=== PATIENT | female | born 1960 | race Asian ===

== ENCOUNTER 2017-10-17 13:48 | Emergency (ER) | payer MEDICAID ==
[~2017-10-17] VITALS: Ht 157.5 cm; Wt 59.9 kg
[2017-10-17] MEDS ORDERED: IV NS 0.9% 1,000 ML BAG IV ONE (14:00)
[2017-10-17] MEDS ORDERED: ACETAMINOPHEN ES 500 MG TABLET PO ONE (14:00)
--- NOTE | 2017-10-17 14:00 | NUR ---
ABDOMINAL PAIN, FEVER, CHILLS x 1 DAY, NAD NOTED, VSS, RESP EVEN AND UNLABORED, WAITING FOR MD ROBINS.
[2017-10-17] MEDS ORDERED: ACETAMINOPHEN ES 500 MG TABLET ONE (14:15)
[2017-10-17] MEDS ORDERED: ONDANSETRON HCL/PF 4 MG/2 ML VIAL ONE (14:16)
[2017-10-17 14:19] LABS: EOSINOPHILS % (AUTO) 0.1 % (0.0-6.0); HEMATOCRIT 41 % (33-45); HEMOGLOBIN 13.9 g/dL (11.5-14.8); LYMPHOCYTES # (AUTO) 0.3 /CMM (0.8-4.8); LYMPHOCYTES % (AUTO) 3.4 % (20.0-44.0); MEAN CORPUSCULAR HGB CONC 34 g/dl (31.0-36.0); MEAN CORPUSCULAR VOLUME 86 fL (82-100); MONOCYTES % (AUTO) 0.3 % (2.0-12.0); NEUTROPHILS # (AUTO) 8.3 /CMM (1.8-8.9); NEUTROPHILS % (AUTO) 96.2 % (43.0-81.0); PLATELET COUNT (AUTO) 251 /CMM (150-450); RDW COEFFICIENT OF VARIATION 13.2 (11.5-15.0); RED BLOOD CELL COUNT(AUTO) 4.71 MIL/uL (4.0-5.2); WHITE BLOOD COUNT (AUTO) 8.6 K/uL (4.3-11.0)
[2017-10-17] MEDS ORDERED: ONDANSETRON HCL/PF 4 MG/2 ML VIAL IV ONE (14:30)
--- NOTE | 2017-10-17 14:34 | NUR ---
meds given per md pt rec'd to er c/o abd pain iv started rt ac 20g labs sent
[2017-10-17 14:37] LABS: INR 0.94 (0.87-1.13)
[2017-10-17] MEDS ORDERED: LOSA25TA13 PO (14:37)
[2017-10-17] MEDS ORDERED: HYDR12.55 PO (14:37)
[2017-10-17 14:44] LABS: CALCIUM, SERUM 9.2 mg/dL (8.5-10.1); CREATININE 0.9 mg/dL (0.6-1.3); POTASSIUM 3.6 mmol/L (3.5-5.1)
--- NOTE | 2017-10-17 14:48 | NUR ---
urine sent to lab
[2017-10-17 14:51] LABS: ALBUMIN 4.1 g/dL (3.4-5.0); BILIRUBIN,DIRECT 0.1 mg/dL (0.0-0.2); BILIRUBIN,TOTAL 0.5 mg/dL (0.2-1.0); TOTAL PROTEIN, SERUM 8.3 g/dL (6.4-8.2)
[2017-10-17 14:52] LABS: APPEARANCE,URINE Clear (CLEAR); BILIRUBIN,URINE Negative (NEGATIVE); BLOOD, URINE Negative Ery/uL (NEGATIVE); COLOR,URINE Yellow (YELLOW); KETONES,URINE Negative (NEGATIVE); LEUKOCYTE ESTERASE ,URINE Negative (NEGATIVE); NITRITE, URINE Negative (NEGATIVE); PH,URINE 7.5 (5.0-8.0); PROTEIN,URINE Negative (NEGATIVE); UGLUCOSE Negative (NEGATIVE); UROBILINOGEN,URINE 0.2 EU/dL (0.2)
[2017-10-17 16:00] VITALS: BP 145/80
--- NOTE | 2017-10-17 16:01 | NUR ---
Patient discharged to home in stable condition. Written and verbal after care instructions given. Patient verbalizes understanding of instruction.IV removed. Catheter intact and site benign. Pressure and 4x4 applied to site. No bleeding noted.
== END 2017-10-17 16:03 | disposition home or self-care (01) ==
LOC: ER 13:50
DX: R10.30 Lower abdominal pain, unspecified (principal); R50.9 Fever, unspecified
CPT/HCPCS: 36415; 71045; 80048; 80076; 81001; 83690; 85025; 85730; 87077; 87086; 96361; 96374; 99285; A4606; J2405; J7030; Z7610; 81000-TC

== ENCOUNTER 2017-10-18 08:28 | Inpatient (IN) | payer MEDICAID ==
[~2017-10-18] VITALS: Ht 157.5 cm; Wt 59.9 kg
[~2017-10-18 08:28] MED LIST: HYDR12.55 PO; LOSA25TA13 PO
--- NOTE | 2017-10-18 08:55 | NUR ---
RECIEVED PATIENT TO ED BED 13, PT IS COMPLAINING OF SUPRAPUBIC PAIN X YESTERDAY, PT WAS SEEN HERE YESTERDAY FOR SAME. PT STS SHE GETS TEMPORARY RELIEF FROM TYLENOL BUT PAIN WOULD COME BACK. NAD VSS RR EVEN AND UNLABORED. WILL CONTINUE TO MONITOR
[2017-10-18] MEDS ORDERED: MORPHINE SULFATE INJ 4 MG/ML DISP.SYRIN ONE (09:00)
[2017-10-18] MEDS ORDERED: ONDANSETRON HCL/PF 4 MG/2 ML VIAL ONE (09:00)
[2017-10-18] MEDS ORDERED: IV NS 0.9% 1,000 ML BAG IV ONE (09:00)
[2017-10-18] MEDS ORDERED: ONDANSETRON HCL/PF - ER 4 MG/2 ML VIAL IV ONE (09:00)
[2017-10-18] MEDS ORDERED: MORPHINE SULFATE INJ 2 MG/ML DISP.SYRIN IV ONE (09:00)
[2017-10-18 09:06] LABS: BASOPHILS % (AUTO) 0.1 % (0.0-2.0); EOSINOPHILS % (AUTO) 0.9 % (0.0-6.0); HEMATOCRIT 42 % (33-45); HEMOGLOBIN 14.3 g/dL (11.5-14.8); LYMPHOCYTES # (AUTO) 0.2 /CMM (0.8-4.8); LYMPHOCYTES % (AUTO) 3.3 % (20.0-44.0); MEAN CORPUSCULAR HGB CONC 34 g/dl (31.0-36.0); MEAN CORPUSCULAR VOLUME 86 fL (82-100); MONOCYTES # (AUTO) 0.2 /CMM (0.1-1.30); MONOCYTES % (AUTO) 2.8 % (2.0-12.0); NEUTROPHILS % (AUTO) 92.9 % (43.0-81.0); PLATELET COUNT (AUTO) 242 /CMM (150-450); RDW COEFFICIENT OF VARIATION 13.1 (11.5-15.0); RED BLOOD CELL COUNT(AUTO) 4.86 MIL/uL (4.0-5.2); WHITE BLOOD COUNT (AUTO) 6.5 K/uL (4.3-11.0)
[2017-10-18 09:14] LABS: CALCIUM, SERUM 9.1 mg/dL (8.5-10.1); POTASSIUM 3.5 mmol/L (3.5-5.1)
[2017-10-18 09:20] LABS: ALBUMIN 3.7 g/dL (3.4-5.0); BILIRUBIN,DIRECT 0.8 mg/dL (0.0-0.2); BILIRUBIN,TOTAL 2.1 mg/dL (0.2-1.0); TOTAL PROTEIN, SERUM 8.1 g/dL (6.4-8.2)
--- NOTE | 2017-10-18 09:51 | NUR ---
DR GANT PAGED [phone]
[2017-10-18] MEDS ORDERED: PIPERACILLIN /TAZOBACTAM 3.375 G in IV D5W 50 ML IV ONE (10:00)
--- NOTE | 2017-10-18 10:11 | NUR ---
Izabella Machado for admission
--- NOTE | 2017-10-18 10:32 | NUR ---
REPORT GIVEN TO AUTUMN LIMON FOR CONT OF CARE
--- NOTE | 2017-10-18 10:43 | NUR ---
PT TRANSFERRED TO FLOOR IN STABLE CONDITION.
--- NOTE | 2017-10-18 10:45 | NUR ---
RN NOTES PT BROUGHT TO FLOOR IN STABLE CONDITION, ALERT AND ORIENTED X4. PT ON RA, RESPIRATIONS ARE EVEN AND UNLABORED. IV ON LAC INTACT AND SL. NO SIGNS OF DISTRESS NOTED. SAFETY MEASURES ARE IN PLACE, CALL LIGHT IS IN REACH. WILL CONTINUE TO MONITOR.
[2017-10-18] MEDS ORDERED: IV NS 0.9% 1,000 ML IV PRN (10:47)
[2017-10-18] MEDS ORDERED: Z GUARD REMEDY 2 OZ OINT TP PRN (11:00)
[2017-10-18] MEDS ORDERED: ZOLPIDEM TARTRATE 5 MG TABLET PO PRN ×2 (11:00→15:00)
[2017-10-18] MEDS ORDERED: ONDANSETRON HCL/PF 4 MG/2 ML VIAL IVP PRN (11:00)
[2017-10-18] MEDS ORDERED: MORPHINE SULFATE INJ 2 MG/ML DISP.SYRIN IV PRN (11:00)
[2017-10-18] MEDS ORDERED: MAGNESIUM HYDROXIDE 30 ML UDC PO PRN (11:00)
[2017-10-18] MEDS ORDERED: MAG HYDROX/AL HYDROX/SIMETH 30 ML UDC PO PRN (11:00)
[2017-10-18] MEDS ORDERED: MIDAZOLAM HCL 2 MG/2ML VIAL ONE (11:18)
[2017-10-18] MEDS ORDERED: FENTANYL PF 100MCG/2ML AMPUL ONE ×2 (11:18→13:13)
[2017-10-18] MEDS ORDERED: ROCURONIUM BROMIDE 50 MG/5 ML ONE (11:19)
[2017-10-18] MEDS ORDERED: FENTANYL PF 100MCG/2ML AMPUL IV PRN (11:30)
[2017-10-18] MEDS ORDERED: BUPIVACAINE 0.25% 75 MG/30 ML VIAL ONE (11:48)
[2017-10-18 14:00] VITALS: BP 114/73
[2017-10-18] MEDS ORDERED: oxyCODONE/APAP (5/325 MG) 1 UDTAB TABLET PO PRN ×2 (15:00)
[2017-10-18] MEDS ORDERED: ONDANSETRON HCL/PF 4 MG/2 ML VIAL IV PRN (15:00)
[2017-10-18 16:00] VITALS: BP 114/70
[2017-10-18] MEDS: IV D5/0.45 NACL W/20 MEQ KCL 1L IV PRN ×2 (16:31)
[2017-10-18] MEDS: LOSARTAN POTASSIUM 25 MG TABLET PO SCH (17:30)
[2017-10-18] MEDS: ZOSYN IVPB 3.375 G in IV D5W 50ml IV SCH (17:30)
[2017-10-18 17:46] LABS: HEMATOCRIT 37 % (33-45); HEMOGLOBIN 12.8 g/dL (11.5-14.8); LYMPHOCYTES # (AUTO) 0.2 /CMM (0.8-4.8); LYMPHOCYTES % (AUTO) 2.5 % (20.0-44.0); MEAN CORPUSCULAR HGB CONC 34 g/dl (31.0-36.0); MEAN CORPUSCULAR VOLUME 86 fL (82-100); MONOCYTES # (AUTO) 0.2 /CMM (0.1-1.30); MONOCYTES % (AUTO) 2.2 % (2.0-12.0); NEUTROPHILS # (AUTO) 7.3 /CMM (1.8-8.9); NEUTROPHILS % (AUTO) 95.3 % (43.0-81.0); PLATELET COUNT (AUTO) 169 /CMM (150-450); RDW COEFFICIENT OF VARIATION 13.8 (11.5-15.0); RED BLOOD CELL COUNT(AUTO) 4.35 MIL/uL (4.0-5.2); WHITE BLOOD COUNT (AUTO) 7.6 K/uL (4.3-11.0)
--- NOTE | 2017-10-18 18:25 | NUR ---
RN NOTES PT IS SITTING UP IN BED, AWAKE AND ALERT WITH AT BEDSIDE. PT ON RA, RESPIRATIONS ARE EVEN AND UNLABORED. IV ON LAC INTACT AND RUNNING D51/2 NS +20MEQ KCL @ 75ML/HR. ALL MEDS WERE GIVEN ORDERED AND PT NEEDS MET. INCISION SITES ARE CLEAN AND DRY POST SURGERY. NO SIGNS OF DISTRESS NOTED. SAFETY MEASURES ARE IN PLACE, CALL LIGHT IS IN REACH. WILL ENDORSE TO DELIVERY ANALYST RN FOR CONTINUITY OF CARE.
--- NOTE | 2017-10-18 19:30 | NUR ---
MS RN NOTE: PATIENT RESTING IN BED, NO ACUTE DISTRESS NOTED. BREATHING EVEN AND UNLABORED, NO SOB NOTED. IV TO LAC IN PLACE, INFUSING D5 1/2NS WITH 20 MEQ OF KCL AT 75ML/HR. 3 INCISION SITE TO ABDOMEN WITH DRESSING IN PLACE, NO BLEEDING OR DRAINAGE NOTED. BED LOCKED AND IN LOWEST POSITION, CALL LIGHT IN REACH. WILL CONTINUE TO MONITOR.
[2017-10-18 20:00] VITALS: BP 126/71
[2017-10-18 20:38] LABS: BAND % (MANUAL) 11 % (0.0-5.0); LYMPHOCYTES % (MANUAL) 1 % (16-48); MONOCYTES % (MANUAL) 4 % (0-11.0); NEUTROPHILS % (MANUAL) 82 (42-76); REACTIVE LYMPHOCYTES 2 % (0-0)
--- NOTE | 2017-10-18 21:15 | NUR ---
MS RN NOTE: REPORT GIVEN TO ASHLY DALAL. PATIENT RESTING IN BED, NO ACUTE DISTRESS NOTED. TO CONTINUE WITH PLAN OF CARE.
--- NOTE | 2017-10-18 21:26 | NUR ---
MS RN NOTES: RECEIVED PT FROM MELISSA LIMON. PT IN STABLE CONDITION. WILL CONTINUE TO MONITOR PT.
[2017-10-18] MEDS: ACETAMINOPHEN 325 MG TABLET PO PRN (21:27)
--- NOTE | 2017-10-18 21:27 | NUR ---
MS RN NOTES: PT WAS ADMINISTERED TYLENOL 650 MG PO FOR MILD PAIN IN HER ABDOMEN AREA.
[2017-10-19] MEDS: ZOSYN IVPB 3.375 G in IV D5W 50ml IV SCH ×3 (01:09→17:38)
[2017-10-19 06:33] LABS: HEMATOCRIT 33 % (33-45); HEMOGLOBIN 11.4 g/dL (11.5-14.8); LYMPHOCYTES # (AUTO) 0.4 /CMM (0.8-4.8); LYMPHOCYTES % (AUTO) 4.1 % (20.0-44.0); MEAN CORPUSCULAR HGB CONC 34 g/dl (31.0-36.0); MEAN CORPUSCULAR VOLUME 87 fL (82-100); MONOCYTES # (AUTO) 0.4 /CMM (0.1-1.30); MONOCYTES % (AUTO) 3.9 % (2.0-12.0); NEUTROPHILS # (AUTO) 8.3 /CMM (1.8-8.9); PLATELET COUNT (AUTO) 162 /CMM (150-450); RDW COEFFICIENT OF VARIATION 13.6 (11.5-15.0); RED BLOOD CELL COUNT(AUTO) 3.83 MIL/uL (4.0-5.2); WHITE BLOOD COUNT (AUTO) 9.1 K/uL (4.3-11.0)
--- NOTE | 2017-10-19 06:40 | NUR ---
MS RN CLOSING NOTES: ALL NEEDS WERE ATTENDED AND ANTICIPATED FOR. PT ON ROOM AIR AND TOLERATING WELL. PT HAS IV RUNNING AT D5 1/2 NS AT 20MEQ KCL AT 75ML/HR. 3 INCISION SITES NOTED COVERED WITH DRESSING. PT IS S/P LAP APPENDECTOMY. CALL LIGHT WITHIN PT'S REACH. BED KEPT IN LOW, LOCKED POSITION, AND SIDE RAILS X 2UP. WILL ENDORSE TO AM NURSE FOR BOO.
[2017-10-19 06:45] LABS: CALCIUM, SERUM 8.3 mg/dL (8.5-10.1); CREATININE 0.9 mg/dL (0.6-1.3); MAGNESIUM 2.4 mg/dL (1.8-2.4); PHOSPHORUS 2.4 mg/dL (2.5-4.9); POTASSIUM 3.6 mmol/L (3.5-5.1)
[2017-10-19 08:00] VITALS: BP 137/63
--- NOTE | 2017-10-19 08:00 | NUR ---
MS RN OPENING NOTES Patient was seen resting comfortably in bed, AA&Ox4. Patient without pain or any signs or symptoms of acute distress, breathing on room air. Able to ambulate to bathroom with stand-by assist, has urinated several times, still no BM. Patient has Peripheral IV in left AC running D5 1/2NS with 20 KCl at 75 ml/hr. Bed is in low/locked position, two side rails up, call tejada within reach. Will continue to monitor.
[2017-10-19] MEDS: ACETAMINOPHEN 325 MG TABLET PO PRN ×2 (08:45→17:39)
[2017-10-19] MEDS: HYDROCHLOROTHIAZIDE 25 MG TABLET PO SCH (08:51)
--- NOTE | 2017-10-19 09:09 | NUR ---
MS RN NOTE - MORNING MEDS: Hydrochlorathiazide not give this AM for BP of 112/67. Tylenol given as requested by patient for headache (5/10 pain). Will reassess in one hour.
[2017-10-19] MEDS: IV D5/0.45 NACL W/20 MEQ KCL 1L IV PRN ×2 (09:35)
--- NOTE | 2017-10-19 10:00 | NUR ---
MS RN NOTE - PAIN REASSESSMENT: Patient states that Tylenol has successfully relieved headache pain to 0/10. Will continue to monitor and administer pain meds on as needed basis.
[2017-10-19] MEDS ORDERED: K PHOS NEUTRAL 250 MG TABLET PO ONE (12:30)
[2017-10-19] MEDS: GUAIFENESIN 300 MG/15 ML UDC PO PRN (12:46)
--- NOTE | 2017-10-19 12:58 | NUR ---
MS RN NOTE - COUGH Patient has complained of feeling "increased phlegm" in her throat and chest; cough is non-productive. Patient received guaifenesin and incentive spirometry as ordered by physician. Will reassess and continue to monitor.
[2017-10-19 16:00] VITALS: BP 120/68
[2017-10-19] MEDS: LOSARTAN POTASSIUM 25 MG TABLET PO SCH (17:39)
--- NOTE | 2017-10-19 18:41 | NUR ---
MS RN CLOSING NOTES Patient resting comfortably in bed with no signs or symptoms of acute distress. Patient has three abdominal incisions from appendectomy covered with dressings, dry and intact. Patient tolerated regular diet today, was able to ambulate to the bathroom independently to urinate, no BM today but patient reports passing flatus. Pain controlled with Tylenol as needed. Seen by Dr. Machado; will continue antibiotics and continue to monitor. Patient care will be endorsed to warehouse worker 2nd shift RN.
--- NOTE | 2017-10-19 19:34 | NUR ---
MS RN OPENING NOTES RECEIVED PT SITTING UPRIGHT IN BED. PT IS ALERT, AWAKE AND RESPONSIVE. RESPIRATIONS ARE EVEN AND UNLABORED, NOT IN ANY ACUTE DISTRESS NOTED. NO C/O CHEST PAIN, SOB, N/V. IV SITE INTACT, NO INFILTRATION NOTED. DRESSING KEPT CLEAN AND DRY. INSTRUCTED PT TO USE CALL LIGHT WHEN ASSISTANCE IS NEEDED, CALL LIGHT IS LEFT WITHIN REACH. WILL CONTINUE TO MONITOR THROUGHOUT SHIFT.
[2017-10-19 20:00] VITALS: BP 135/79
[2017-10-20] MEDS: ZOSYN IVPB 3.375 G in IV D5W 50ml IV SCH ×2 (01:00→10:29)
[2017-10-20] MEDS: ACETAMINOPHEN 325 MG TABLET PO PRN (01:00)
[2017-10-20] MEDS: GUAIFENESIN 300 MG/15 ML UDC PO PRN (01:06)
[2017-10-20] MEDS: IV D5/0.45 NACL W/20 MEQ KCL 1L IV PRN ×2 (05:00)
--- NOTE | 2017-10-20 06:20 | NUR ---
MS RN CLOSING NOTES ALL DUE MEDS GIVEN, NEEDS MET AND RENDERED. ALERT, AWAKE AND RESPONSIVE. RESPIRATIONS ARE EVEN AND UNLABORED. DENIES ANY CHEST PAIN, SOB, N/V. IV SITE INTACT, NO INFILTRATION NOTED. DRESSING KEPT CLEAN AND DRY. EDUCATED PT RE: USE OF INCENTIVE SPIROMETER AND ABLE TO PERFORM RETURN DEMONSTRATION. SAFETY MEASURES ARE IN PLACE. REMINDED PT TO USE CALL LIGHT WHEN ASSISTANCE IS NEEDED.
[2017-10-20 07:07] LABS: BASOPHILS % (AUTO) 0.1 % (0.0-2.0); EOSINOPHILS % (AUTO) 0.2 % (0.0-6.0); HEMATOCRIT 32 % (33-45); HEMOGLOBIN 10.9 g/dL (11.5-14.8); LYMPHOCYTES # (AUTO) 0.7 /CMM (0.8-4.8); LYMPHOCYTES % (AUTO) 10.1 % (20.0-44.0); MEAN CORPUSCULAR HGB CONC 34 g/dl (31.0-36.0); MEAN CORPUSCULAR VOLUME 87 fL (82-100); MONOCYTES # (AUTO) 0.3 /CMM (0.1-1.30); NEUTROPHILS # (AUTO) 5.6 /CMM (1.8-8.9); NEUTROPHILS % (AUTO) 85.6 % (43.0-81.0); PLATELET COUNT (AUTO) 175 /CMM (150-450); RDW COEFFICIENT OF VARIATION 14.1 (11.5-15.0); RED BLOOD CELL COUNT(AUTO) 3.64 MIL/uL (4.0-5.2); WHITE BLOOD COUNT (AUTO) 6.6 K/uL (4.3-11.0)
[2017-10-20 08:00] VITALS: BP 145/84
[2017-10-20] MEDS: HYDROCODONE/APAP 5/325MG 1 EACH TABLET PO PRN ×2 (08:00→13:29)
[2017-10-20] MEDS: LOSARTAN POTASSIUM 25 MG TABLET PO SCH (08:48)
[2017-10-20 08:49] VITALS: BP 145/84
[2017-10-20] MEDS: HYDROCHLOROTHIAZIDE 25 MG TABLET PO SCH (08:49)
[2017-10-20] MEDS ORDERED: HYDR-3974 PO (12:31)
[2017-10-20] MEDS ORDERED: CEPH-570 PO (12:31)
--- NOTE | 2017-10-20 15:20 | NUR ---
RECEIVED PT. ALERT AND ORIENTED X4.SKIN WARM AND DRY.IV INFUSING.DRESSINGS ON ABD.CLEAN AND DRY.MED X2 FOR PAIN PASSING FLATUS,GIVEN MOM NO BM IN SEVERAL DAYS,WAS PRIOR TO SURGERY.VS STABLE.UP AMB. IN [place].BOTH DR. GANT AND REINIER GRIGSBY IN TO SEE PT. DC ORDER GIVEN,ALL INSTRUCTIONS GIVEN.HAS RX,S AND BELONGING SHEET SIGNED.HEP LOCK OUT.TAKEN VIA W/C TO LOBBY ACCOMPANIED BY COLLECTION SPECIALIST AND SPOUSE.
[2017-10-20] MEDS ORDERED: PIPERACILLIN /TAZOBACTAM 3.375 G in IV D5W 50 ML IV SCH (18:00)
== END 2017-10-20 15:20 | disposition home or self-care (01) | DRG 225 ==
LOC: ER 08:29 → MED 10:42
PROVIDERS: ADMIT Internal Medicine; ATTEND Internal Medicine
PROC: 0DTJ4ZZ Resection of Appendix, Percutaneous Endoscopic Approach (ICD-10-PCS; principal; 2017-10-18 11:30)
DX: K35.3 Acute appendicitis with localized peritonitis (principal); C7A.020 Malignant carcinoid tumor of the appendix; I10 Essential (primary) hypertension; B96.89 Other specified bacterial agents as the cause of diseases classified elsewhere
CPT/HCPCS: 36415; 80048-TC; 80076-TC; 83690-TC; 83735-TC; 84100-TC; 85025-TC; 87070-TC; 87075-TC; 87081-TC; 87186-TC; 88304-TC; 88305-TC; 88342; A4606; J1100; J1885; J2250; J2270; J2405; J2543; J2704; J3010; J3480; J3490; J7030; J7060; Z7610

== ENCOUNTER 2017-10-23 08:33 | Emergency (ER) | payer MEDICAID ==
[~2017-10-23] VITALS: Ht 157.5 cm; Wt 59.9 kg
[~2017-10-23 08:33] MED LIST changes: +CEPH-570 PO; +HYDR-3974 PO
--- NOTE | 2017-10-23 08:33 | NUR ---
COUGH CONGESTION SOB X4 DAYS EMERGENCY DEPARTMENT COORDINATOR . RECENT APPENDECTOMY 10/20/17.
[2017-10-23] MEDS ORDERED: IPRATROPIUM NEB FS 0.5 MG/2.5 ML AMPUL.NEB NEB ONE (09:00)
[2017-10-23] MEDS ORDERED: ALBUTEROL FS 2.5 MG/3 ML VIAL.NEB NEB ONE (09:00)
[2017-10-23] MEDS ORDERED: IPRATROPIUM NEB FS 0.5 MG/2.5 ML AMPUL.NEB ONE (09:00)
[2017-10-23] MEDS ORDERED: ALBUTEROL FS 2.5 MG/3 ML VIAL.NEB ONE (09:00)
--- NOTE | 2017-10-23 09:00 | NUR ---
RT AT BS FOR BREATHING TX.
[2017-10-23 09:10] LABS: EOSINOPHILS % (AUTO) 0.7 % (0.0-6.0); HEMATOCRIT 36 % (33-45); HEMOGLOBIN 12.5 g/dL (11.5-14.8); LYMPHOCYTES # (AUTO) 0.8 /CMM (0.8-4.8); LYMPHOCYTES % (AUTO) 7.5 % (20.0-44.0); MEAN CORPUSCULAR HGB CONC 35 g/dl (31.0-36.0); MEAN CORPUSCULAR VOLUME 85 fL (82-100); MONOCYTES # (AUTO) 0.5 /CMM (0.1-1.30); MONOCYTES % (AUTO) 4.6 % (2.0-12.0); NEUTROPHILS % (AUTO) 87.2 % (43.0-81.0); PLATELET COUNT (AUTO) 370 /CMM (150-450); RDW COEFFICIENT OF VARIATION 14.6 (11.5-15.0); RED BLOOD CELL COUNT(AUTO) 4.26 MIL/uL (4.0-5.2); WHITE BLOOD COUNT (AUTO) 10.4 K/uL (4.3-11.0)
[2017-10-23 09:30] LABS: POTASSIUM 3.5 mmol/L (3.5-5.1)
[2017-10-23 09:31] LABS: CALCIUM, SERUM 9.1 mg/dL (8.5-10.1); CREATININE 0.8 mg/dL (0.6-1.3)
--- NOTE | 2017-10-23 09:57 | NUR ---
Patient discharged to home in stable condition. Written and verbal after care instructions given. Patient verbalizes understanding of instruction.
--- NOTE | 2017-10-23 09:57 | NUR ---
IV removed. Catheter intact and site benign. Pressure and 4x4 applied to site. No bleeding noted.
[2017-10-23 10:02] VITALS: BP 139/91
== END 2017-10-23 10:02 | disposition home or self-care (01) ==
LOC: ER 08:35
DX: J98.11 Atelectasis (principal); R06.02 Shortness of breath; I10 Essential (primary) hypertension; Z90.89 Acquired absence of other organs; Z60.2 Problems related to living alone
CPT/HCPCS: 36415; 71045-TC; 80048-TC; 85025-TC; A4606; Z7610

== ENCOUNTER 2017-10-24 09:52 | Inpatient (IN) | payer MEDICAID ==
[~2017-10-24] VITALS: Ht 157.5 cm; Wt 61.2 kg
--- NOTE | 2017-10-24 11:00 | NUR ---
c/o diarrhea, NAD noted, VSS, resp even and unlabored, pt was put on monitor, at .
[2017-10-24 11:21] LABS: BASOPHILS % (AUTO) 0.3 % (0.0-2.0); EOSINOPHILS % (AUTO) 0.7 % (0.0-6.0); HEMATOCRIT 36 % (33-45); HEMOGLOBIN 12.3 g/dL (11.5-14.8); LYMPHOCYTES # (AUTO) 0.7 /CMM (0.8-4.8); LYMPHOCYTES % (AUTO) 10.1 % (20.0-44.0); MEAN CORPUSCULAR HGB CONC 34 g/dl (31.0-36.0); MEAN CORPUSCULAR VOLUME 85 fL (82-100); MONOCYTES # (AUTO) 0.4 /CMM (0.1-1.30); MONOCYTES % (AUTO) 5.1 % (2.0-12.0); NEUTROPHILS # (AUTO) 5.9 /CMM (1.8-8.9); NEUTROPHILS % (AUTO) 83.8 % (43.0-81.0); PLATELET COUNT (AUTO) 481 /CMM (150-450); RDW COEFFICIENT OF VARIATION 13.6 (11.5-15.0)
[2017-10-24 11:30] LABS: CALCIUM, SERUM 9.3 mg/dL (8.5-10.1); CREATININE 0.7 mg/dL (0.6-1.3); POTASSIUM 4.2 mmol/L (3.5-5.1)
[2017-10-24] MEDS ORDERED: IV NS 0.9% 1,000 ML BAG IV ONE (11:30)
[2017-10-24 11:35] LABS: BILIRUBIN,DIRECT 0.2 mg/dL (0.0-0.2); BILIRUBIN,TOTAL 0.7 mg/dL (0.2-1.0); TOTAL PROTEIN, SERUM 8.4 g/dL (6.4-8.2)
--- NOTE | 2017-10-24 11:45 | NUR ---
stool sample sent to lab
--- NOTE | 2017-10-24 13:33 | NUR ---
CALLED NURSING SUP. FOR MS BED
--- NOTE | 2017-10-24 13:33 | NUR ---
LAVONNE PAGED, HOME THEATER EXPERT
--- NOTE | 2017-10-24 13:38 | NUR ---
REPORT GIVEN TO ASHLY HARDING FOR BOO MS 200.
--- NOTE | 2017-10-24 14:15 | NUR ---
RECEIVED PATIENT IN NO APPARENT DISTRESS. BEDSIDE RAILS ARE UPX2. BED IS LOCKED AND LOWERED CALL LIGHT IS WITHIN REACH. WILL CONTINUE TO MONITOR. IV LINE IS INTACT AND PATENT.
[2017-10-24] MEDS: IV NS 0.9% 1,000 ML IV PRN (15:25)
[2017-10-24 16:00] VITALS: BP 136/80
[2017-10-24] MEDS: LOSARTAN POTASSIUM 25 MG TABLET PO SCH (17:22)
--- NOTE | 2017-10-24 19:17 | NUR ---
MS RN CLOSING NOTES PATIENT IN STABLE CONDITION. IN NO APPARENT DISTRESSED. BEDSIDE RAILS ARE UPX2. BED IS LOCKED AND LOWERED. CALL LIGHT IS WITHIN REACH. WILL ENDORSE CARE TO CHIEF ESTIMATOR NURSE FOR BOO.
--- NOTE | 2017-10-24 19:30 | NUR ---
MS RN NOTES RECEIVED ON BED FEELING NAUSEATED,PAIN SCALE OF 4,BREATHING NON LABORED.NS AT 100ML/HR RATE IN PROGRESS,AMBULATE TO THE TOILET WITH STEADY GAIT.S/P APPENDECTOMY ON THE October.A/O X4.CALL LIGHT IN REACH,NEEDS ANTICIPATED.
[2017-10-24 20:00] VITALS: BP 148/82
--- NOTE | 2017-10-24 20:25 | NUR ---
MS RN NOTES STOOL FOR WBC AND OVA AND PARASITES,COLLECTED,SENT TO LAB
[2017-10-24] MEDS: GUAIFENESIN LA 600 MG TABLET.SA PO SCH (21:02)
--- NOTE | 2017-10-24 21:25 | NUR ---
MS RN NOTES C/O ABDOMINAL PAIN 3/10 ON PAIN SCALE.NO PAIN MEDS AVAILABLE.DR ORELLANA MADE AWARE WITH ORDER FOR TYLENOL 650 PO Q 6 PRN FOR MILD PAIN NOTED AND CARRIED OUT.
[2017-10-24] MEDS: ACETAMINOPHEN 325 MG TABLET PO PRN (21:36)
--- NOTE | 2017-10-24 21:36 | NUR ---
MS RN NOTES MEDICATED WITH TYLENOL 650MG PO FOR MILD PAIN
[2017-10-24] MEDS ORDERED: ONDANSETRON HCL/PF 4 MG/2 ML VIAL IV PRN (23:30)
--- NOTE | 2017-10-25 01:00 | NUR ---
MS RN NOTES SOUND ASLEEP,KEPT WARM AND COMFORTABLE
[2017-10-25] MEDS: ACETAMINOPHEN 325 MG TABLET PO PRN ×2 (03:59→17:24)
--- NOTE | 2017-10-25 03:59 | NUR ---
MS RN NOTES C/O BACK PAIN 3/10 ON PAIN SCALE,TYLENOL 659MG PO GIVEN
--- NOTE | 2017-10-25 06:46 | NUR ---
MS RN NOTES HAD BM 5X IN THE BATHROOM,IN SMALL AMOUNT MUCOIDAL IN NATURE AND GREENISH COLOR.MEDICATED X2 WITH TYLENOL FOR MILD PAIN.AWAITING RESULTS FOR STOOL CULTURE AND C-DIFF,OVA AND PARASITE.IN NO ACUTE DISTRESS.WILL ENDORSE TO DAY NURSE FOR BOO.
--- NOTE | 2017-10-25 07:30 | NUR ---
MS RN OPENING NOTES RECEIVED PATIENT IN STABLE CONDITION. IN NO APPARENT DISTRESS. BEDSIDE RAILS ARE UP X2. BED IS LOCKED AND LOWERED. CALL LIGHT IS WITHIN REACH. IV LINE IS INTACT AND PATENT. WILL CONTINUE TO MONITOR.
[2017-10-25 08:00] VITALS: BP 130/80
[2017-10-25] MEDS: HYDROCHLOROTHIAZIDE 25 MG TABLET PO SCH (08:49)
[2017-10-25] MEDS: GUAIFENESIN LA 600 MG TABLET.SA PO SCH ×2 (08:50→21:00)
[2017-10-25] MEDS ORDERED: IV NS 0.9% 1,000 ML BAG IV SCH (09:00)
[2017-10-25 16:00] VITALS: BP 128/78
[2017-10-25] MEDS: LACTOBACILLUS RHAMNOSUS GG 1 EACH CAP.SPRINK PO SCH (17:24)
[2017-10-25] MEDS: LOSARTAN POTASSIUM 25 MG TABLET PO SCH (17:25)
--- NOTE | 2017-10-25 17:30 | NUR ---
INFORMED DR. FERNANDO THAT FOR PATIENT MARKO STACK THE STOOL CULTURE IS POSITIVE FOR CAMPYLOBACTER. DR. FERNANDO MADE AWARE.
--- NOTE | 2017-10-25 18:12 | NUR ---
PER DR. FERNANDO NO ISOLATION NEEDED FOR POSITIVE STOOL CULTURE CAMPYLOBACTER
--- NOTE | 2017-10-25 18:15 | NUR ---
MS RN CLOSING NOTES PATIENT IS STABLE IN NO APPARENT DISTRESS. BEDSIDE RAILS ARE UPX2. BED IS LOCKED AND LOWERED. CALL LIGHT IS WITHIN REACH. ALL NEEDS WERE MET. WILL ENDORSE CARE TO TRANSITIONS MANAGER NURSE FOR BOO.
[2017-10-25] MEDS: IV NS 0.9% 1,000 ML IV PRN (19:02)
--- NOTE | 2017-10-25 19:30 | NUR ---
MS RN NOTES RECEIVED RESTING COMFORTABLY ON BED,DENIES PAIN.REMAINS NPO EXCEPT MEDS AND WATER,AWAITING FOR OVA AND PARASITE STOOL EXAM RESULT.SALINE LOCK LAC INTACT AND PATENT,NS AT 100ML/HR RATE IN PROGRESS.AMBULATES TO THE TOILET.WILL CONTINUE FOR LOOSE BM.CALL LIGHT IN REACH,NEEDS ANTICIPATED
[2017-10-25 20:00] VITALS: BP 139/79
--- NOTE | 2017-10-25 21:35 | NUR ---
MS RN NOTES REFUSED MUCINEX DOSE THIS TIME,CLAIMED IT MAKES HER DRY.
[2017-10-26] MEDS: ACETAMINOPHEN 325 MG TABLET PO PRN (06:00)
--- NOTE | 2017-10-26 07:15 | NUR ---
MS RN NOTES A/O X 4, CURRENTLY NPO EXCEPT MEDS. TOLERATING ROOM AIR, NO SOB. ABDOMINAL INCISION WITH VENITA INTACT, DRESSING IN PLACE, DENIES PAIN. SAFETY MEASURES IN PLACE, WILL CONT TO MONITOR.
--- NOTE | 2017-10-26 07:26 | NUR ---
MS RN NOTES STILL HAVING MUCOID BOWEL MOVEMENT,NON FOUL SMELL, AWAITING OVA AND PARASITE TEST RESULT.AWAITING FOR DR GANT TO REMOVE STAPLE ON LAP APPY SITE.IN NO ACUTE DISTRESS.ENDORSED TO NIKIA LIMON FOR BOO.
[2017-10-26 08:00] VITALS: BP 114/72
[2017-10-26] MEDS: LACTOBACILLUS RHAMNOSUS GG 1 EACH CAP.SPRINK PO SCH ×2 (08:10→16:47)
[2017-10-26] MEDS: HYDROCHLOROTHIAZIDE 25 MG TABLET PO SCH (08:12)
[2017-10-26] MEDS: GUAIFENESIN LA 600 MG TABLET.SA PO SCH ×2 (08:13→21:00)
[2017-10-26 09:44] LABS: CALCIUM, SERUM 9.2 mg/dL (8.5-10.1); CREATININE 0.7 mg/dL (0.6-1.3); POTASSIUM 3.8 mmol/L (3.5-5.1)
[2017-10-26 09:54] LABS: BASOPHILS % (AUTO) 0.2 % (0.0-2.0); EOSINOPHILS % (AUTO) 0.9 % (0.0-6.0); HEMATOCRIT 37 % (33-45); HEMOGLOBIN 12.4 g/dL (11.5-14.8); LYMPHOCYTES # (AUTO) 0.9 /CMM (0.8-4.8); LYMPHOCYTES % (AUTO) 11.1 % (20.0-44.0); MEAN CORPUSCULAR HGB CONC 34 g/dl (31.0-36.0); MEAN CORPUSCULAR VOLUME 85 fL (82-100); MONOCYTES # (AUTO) 0.5 /CMM (0.1-1.30); MONOCYTES % (AUTO) 5.9 % (2.0-12.0); NEUTROPHILS # (AUTO) 6.9 /CMM (1.8-8.9); NEUTROPHILS % (AUTO) 81.9 % (43.0-81.0); PLATELET COUNT (AUTO) 553 /CMM (150-450); RDW COEFFICIENT OF VARIATION 13.2 (11.5-15.0); RED BLOOD CELL COUNT(AUTO) 4.29 MIL/uL (4.0-5.2); WHITE BLOOD COUNT (AUTO) 8.4 K/uL (4.3-11.0)
[2017-10-26] MEDS: IV NS 0.9% 1,000 ML IV PRN (10:42)
--- NOTE | 2017-10-26 11:10 | NUR ---
ABDOMINAL VENITA REMOVED WITH ASEPTIC TECHNIQUE, NO S/S OF INFECTION OVER INCISION SITE, PATIENT TOLERATED WELL.
[2017-10-26 16:00] VITALS: BP 129/75
[2017-10-26] MEDS: LOSARTAN POTASSIUM 25 MG TABLET PO SCH (16:48)
--- NOTE | 2017-10-26 18:31 | NUR ---
MS RN CLOSING NOTES DENIES PAIN, WITH EPISODE OF DIARRHEA REPORTED BY PATIENT, STOOL C-DIFF NEGATIVE, OVA AND PARASITE RESULT PENDING. SURGERY (2ND OPINION) CONSULTED, NO SURGICAL INTERVENTION AT THIS TIME PER MAILING SECTION CLERK-LEATHA, PATIENT IS AWARE. ON FULL LIQUIDS DIET, TOLERATING WELL, NO N/V. SAFETY MEASURES IN PLACE. WILL ENDORSE TO ONCOMING RN.
--- NOTE | 2017-10-26 19:30 | NUR ---
rn note; RECEIVED PT SITTING ON A CHAIR. BREATHING EVENLY. NO SOB. NAD. W/ ONGOING DIARRHEA (PER PT: NON-BLOODY) AND MILD ABD PAIN. NO N/V. AWARE OF HER PATHOLOGY RESULTS COPING AND UNDERSTANDING WELL. CALL LIGHT WITHIN REACH. WILL CONT TO MONITOR .
[2017-10-26 20:00] VITALS: BP 113/72
[2017-10-27] MEDS: ACETAMINOPHEN 325 MG TABLET PO PRN ×2 (00:33→21:16)
--- NOTE | 2017-10-27 00:33 | NUR ---
TYLENOL GIVEN ORDERED PER PT'S REQUEST FOR C/O ABD PAIN. WILL CONT TO MONITOR.
[2017-10-27 06:23] LABS: BASOPHILS % (AUTO) 0.1 % (0.0-2.0); EOSINOPHILS % (AUTO) 0.8 % (0.0-6.0); HEMATOCRIT 34 % (33-45); HEMOGLOBIN 11.8 g/dL (11.5-14.8); LYMPHOCYTES # (AUTO) 0.7 /CMM (0.8-4.8); LYMPHOCYTES % (AUTO) 7.9 % (20.0-44.0); MEAN CORPUSCULAR HGB CONC 34 g/dl (31.0-36.0); MEAN CORPUSCULAR VOLUME 86 fL (82-100); MONOCYTES # (AUTO) 0.5 /CMM (0.1-1.30); MONOCYTES % (AUTO) 5.2 % (2.0-12.0); NEUTROPHILS # (AUTO) 7.7 /CMM (1.8-8.9); PLATELET COUNT (AUTO) 515 /CMM (150-450); RED BLOOD CELL COUNT(AUTO) 4.02 MIL/uL (4.0-5.2)
[2017-10-27 06:34] LABS: CALCIUM, SERUM 8.6 mg/dL (8.5-10.1); CREATININE 0.7 mg/dL (0.6-1.3); POTASSIUM 3.3 mmol/L (3.5-5.1)
--- NOTE | 2017-10-27 06:51 | NUR ---
PT IN BED SLEEPING, AROUSES EASILY. BREATHING EVENLY. NO SOB. NAD . W/ INTERMITTENT C/O ABD PAIN. NO ACUTE EVENT DURING THE NIGHT. REMAINED ON IVF HYDRATION. NEEDS ATTENDED. BED LOW LOCKED. CALL LIGHT WITHIN REACH.WILL CONT TO MONITOR AND WILL ENDORSE TO AM SHIFT FOR BOO
--- NOTE | 2017-10-27 07:30 | NUR ---
MS/RN Patient received Patient received from stretcher and drier. A/O X4, denies any pain or discomfort at this time. Vital signs within normal range, no fever noted. Safety measures in place, will continue to monitor and ensure safety.
[2017-10-27 08:00] VITALS: BP 126/74
[2017-10-27] MEDS: LACTOBACILLUS RHAMNOSUS GG 1 EACH CAP.SPRINK PO SCH ×2 (08:48→17:18)
[2017-10-27] MEDS: GUAIFENESIN LA 600 MG TABLET.SA PO SCH ×3 (08:49→21:14)
[2017-10-27] MEDS: HYDROCHLOROTHIAZIDE 25 MG TABLET PO SCH (08:50)
--- NOTE | 2017-10-27 09:00 | NUR ---
MS/RN Medications Morning medications administered as ordered.
[2017-10-27] MEDS ORDERED: POTASSIUM CHLORIDE 20 MEQ TAB.PRT.SR PO SCH (10:00)
--- NOTE | 2017-10-27 10:00 | NUR ---
MS/RN K+ Potassium level 3.3, replaced by pharmacy.
--- NOTE | 2017-10-27 12:00 | NUR ---
MS/RN S/B Dr Godfrey Seen by Dr Godfrey - await colonoscopy and oncology consult.
[2017-10-27 16:00] VITALS: BP 112/70
--- NOTE | 2017-10-27 16:04 | NUR ---
MS/RN S/B Dr Valadez Seen by Dr Valadez - for possible colonoscopy tomorrow, depending on result, possible hemicolectomy with Dr Godfrey.
[2017-10-27] MEDS: LOSARTAN POTASSIUM 25 MG TABLET PO SCH (17:19)
--- NOTE | 2017-10-27 18:11 | NUR ---
MS/RN S/B Dr Talavera Seen by Dr Talavera - CT chest, pelvis and abdomen w/wo contrast ordered for tumor markings. NPO for CT, consent forms signed.
--- NOTE | 2017-10-27 18:12 | NUR ---
MS/RN End note Patient remains in stable condition, all concerns and questions addressed. Consent form for CT scans signed. Will endorse to night supervisor.
--- NOTE | 2017-10-27 19:36 | NUR ---
RECEIVED PT IN BED AWAKE AND ALERT. BREATHING EVENLY NO SOB. AND .SKIN WARM AND DRY. NO C/O PAIN OR DISCOMFORT AT THIS TIME. NEEDS ATTENDED. CALL LIGHT WITHIN REACH, WILL CONT TO MONITOR ,
[2017-10-27 20:00] VITALS: BP 115/74
[2017-10-27] MEDS ORDERED: IOHEXOL-300 100 ML VIAL IV ONE (20:00)
[2017-10-27] MEDS ORDERED: IV NS 0.9% 250 ML IV ONE (20:01)
[2017-10-27] MEDS ORDERED: CT SWABBABLE VALVE TRANS SET 1 EA INFUS.SET MC ONE (20:01)
--- NOTE | 2017-10-27 20:03 | NUR ---
pt left the floor via w/c in stable condition for CT
--- NOTE | 2017-10-27 20:30 | NUR ---
BACK FROM CT IN STABLE CONDITION
--- NOTE | 2017-10-27 21:17 | NUR ---
tylenol given as ordered per pt's requerst for mild abd. pain. will cont to monitor ,
--- NOTE | 2017-10-27 22:37 | NUR ---
RECEIVED A CALL FROM RADIOLOGIST W/ A RESULT OF ABD CT FOR SBO. PAGED EPIDEMIOLOGY INTERN TO RELAY THE RESULTS. AWAITING FOR HIS/ HER CALL BACK
--- NOTE | 2017-10-27 23:00 | NUR ---
RECEIVED A CALL BACK FROM DOMINGO RUEDA OF DR. MICHELE . SHE REVIEWED THE RESULTS AND HAD NEW ORDERS FRO: -NPO -CHANGE IVF TO D5NS -KUB IN AM ALL ORDERS WERE PLACED AND PT MADE AWARE OF THE NEW ORDERS.
[2017-10-27] MEDS: IV D5/ 0.9% NACL 1,000 ML IV PRN (23:11)
--- NOTE | 2017-10-28 00:21 | NUR ---
NEW IV LINE WAS INSERTED ON RAC W/ GOOD BLOOD FLOW .
[2017-10-28 07:22] LABS: BASOPHILS % (AUTO) 0.1 % (0.0-2.0); EOSINOPHILS % (AUTO) 0.6 % (0.0-6.0); HEMATOCRIT 34 % (33-45); HEMOGLOBIN 11.5 g/dL (11.5-14.8); LYMPHOCYTES # (AUTO) 0.8 /CMM (0.8-4.8); LYMPHOCYTES % (AUTO) 10.3 % (20.0-44.0); MEAN CORPUSCULAR HGB CONC 34 g/dl (31.0-36.0); MEAN CORPUSCULAR VOLUME 87 fL (82-100); MONOCYTES # (AUTO) 0.5 /CMM (0.1-1.30); MONOCYTES % (AUTO) 6.9 % (2.0-12.0); NEUTROPHILS # (AUTO) 6.4 /CMM (1.8-8.9); NEUTROPHILS % (AUTO) 82.1 % (43.0-81.0); PLATELET COUNT (AUTO) 522 /CMM (150-450); RDW COEFFICIENT OF VARIATION 13.7 (11.5-15.0); RED BLOOD CELL COUNT(AUTO) 3.89 MIL/uL (4.0-5.2); WHITE BLOOD COUNT (AUTO) 7.8 K/uL (4.3-11.0)
--- NOTE | 2017-10-28 07:30 | NUR ---
MS RN NOTES A/O X 4, CURRENTLY NPO, FOR KUB TODAY. TOLERATING ROOM AIR, NO SOB. ABDOMINAL INCISION, STERI STRIP IN PLACE. IVF D5 1/2 NS INFUSING AT 100ML/HR. SAFETY MEASURES IN PLACE, WILL CONT TO MONITOR.
[2017-10-28 07:31] LABS: CALCIUM, SERUM 8.5 mg/dL (8.5-10.1); CREATININE 0.7 mg/dL (0.6-1.3); MAGNESIUM 2.1 mg/dL (1.8-2.4); PHOSPHORUS 3.5 mg/dL (2.5-4.9); POTASSIUM 3.8 mmol/L (3.5-5.1)
--- NOTE | 2017-10-28 07:45 | NUR ---
PT IN BED IN STABLE CONDITION. REPORT GIVEN TO NIKIA FOR BOO.
[2017-10-28 08:00] VITALS: BP 109/64
[2017-10-28] MEDS: GUAIFENESIN LA 600 MG TABLET.SA PO SCH ×2 (09:00→22:14)
[2017-10-28] MEDS: HYDROCHLOROTHIAZIDE 25 MG TABLET PO SCH (09:00)
[2017-10-28] MEDS: LACTOBACILLUS RHAMNOSUS GG 1 EACH CAP.SPRINK PO SCH ×2 (09:00→17:11)
[2017-10-28] MEDS: IV D5/ 0.9% NACL 1,000 ML IV PRN (09:55)
--- NOTE | 2017-10-28 13:19 | NUR ---
RECEIVED PHONE CALL FROM DR. GANT/SURGERY, REVIEWED KUB RESULT WITH MD. PLACE PATIENT ON CLEAR LIQUIDS DIET. PER DR. GANT COLONOSCOPY PROCEDURE CAN BA DONE OUTPATIENT, PATIENT MADE AWARE.
[2017-10-28 16:00] VITALS: BP 114/67
[2017-10-28] MEDS: LOSARTAN POTASSIUM 25 MG TABLET PO SCH (17:11)
--- NOTE | 2017-10-28 19:55 | NUR ---
MS RN CLOSING NOTES DENIES PAIN AT THIS TIME, VS REMAINS STABLE. EPISODE OF DIARRHEA MUCOID TYPE TODAY. CURRENTLY ON CLEAR LIQUIDS DIET, TOLERATING WELL. NO VOMITING, NO REPORTED NAUSEA. SAFETY MEASURES IN PLACE. ENDORSED TO NIGHT RN.
[2017-10-28 20:00] VITALS: BP 112/67
[2017-10-29] MEDS: IV D5/ 0.9% NACL 1,000 ML IV PRN (02:37)
--- NOTE | 2017-10-29 06:50 | NUR ---
MS RN NOTES AWAKE & RESPONSIVE. NOT IN ANY DISTRESS. NO SOB NOTED. DENIES ANY PAIN OR DISCOMFORT AT THIS TIME. WITH IVF INFUSING WELL. MONITORED ACCORDINGLY. CALL LIGHT WITHIN REACH. BED IN LOWEST POSITION. SR UP X 2 FOR SAFETY. WILL ENDORSE TO NEXT SHIFT.
[2017-10-29 07:26] LABS: BASOPHILS % (AUTO) 0.1 % (0.0-2.0); EOSINOPHILS % (AUTO) 1.2 % (0.0-6.0); HEMATOCRIT 33 % (33-45); HEMOGLOBIN 11.7 g/dL (11.5-14.8); LYMPHOCYTES # (AUTO) 0.8 /CMM (0.8-4.8); LYMPHOCYTES % (AUTO) 14.7 % (20.0-44.0); MEAN CORPUSCULAR HGB CONC 36 g/dl (31.0-36.0); MEAN CORPUSCULAR VOLUME 86 fL (82-100); MONOCYTES # (AUTO) 0.4 /CMM (0.1-1.30); MONOCYTES % (AUTO) 7.6 % (2.0-12.0); NEUTROPHILS % (AUTO) 76.4 % (43.0-81.0); PLATELET COUNT (AUTO) 496 /CMM (150-450); RDW COEFFICIENT OF VARIATION 13.1 (11.5-15.0); RED BLOOD CELL COUNT(AUTO) 3.84 MIL/uL (4.0-5.2); WHITE BLOOD COUNT (AUTO) 5.3 K/uL (4.3-11.0)
[2017-10-29 07:38] LABS: CALCIUM, SERUM 8.5 mg/dL (8.5-10.1); CREATININE 0.6 mg/dL (0.6-1.3); PHOSPHORUS 3.2 mg/dL (2.5-4.9)
[2017-10-29 07:41] LABS: POTASSIUM 3.3 mmol/L (3.5-5.1)
[2017-10-29 08:00] VITALS: BP 126/72
[2017-10-29] MEDS: GUAIFENESIN LA 600 MG TABLET.SA PO SCH (08:08)
[2017-10-29 08:09] VITALS: BP 126/72
[2017-10-29] MEDS: LACTOBACILLUS RHAMNOSUS GG 1 EACH CAP.SPRINK PO SCH (08:09)
[2017-10-29] MEDS: HYDROCHLOROTHIAZIDE 25 MG TABLET PO SCH (08:09)
--- NOTE | 2017-10-29 09:00 | NUR ---
MS/RN Medications Morning medications administered as ordered.
[2017-10-29] MEDS ORDERED: POTASSIUM CHLORIDE 20 MEQ TAB.PRT.SR PO SCH (10:30)
--- NOTE | 2017-10-29 11:10 | NUR ---
MS/RN Exit care Exit care prepared, copies made of chart. Patient for possible discharge home today.
--- NOTE | 2017-10-29 13:00 | NUR ---
MS/air valve repairer Patient discharged to home in stable condition, with providing transport. Escorted to main lobby by SECURITY SUPERVISOR. All personal belongings with patient and signed for on personal property list. Heplock and name bands removed. Education provided to patient about the importance of following up with doctors at [facility] to obtain treatment plan. Stated understanding, provided with copy of CT scans and pathology report to provide to MD at outside facility. All questions and concerns addressed and answered.
== END 2017-10-29 13:00 | disposition home or self-care (01) | DRG 240 ==
LOC: ER 09:57 → MEDSG2 13:40
PROVIDERS: ADMIT Family Medicine; ATTEND Family Medicine
DX: C7A.020 Malignant carcinoid tumor of the appendix (principal); E34.0 Carcinoid syndrome; E86.0 Dehydration; E44.1 Mild protein-calorie malnutrition; I10 Essential (primary) hypertension; D25.9 Leiomyoma of uterus, unspecified; Z83.3 Family history of diabetes mellitus; Z87.891 Personal history of nicotine dependence; Z68.24 Body mass index [BMI] 24.0-24.9, adult; E88.09 Other disorders of plasma-protein metabolism, not elsewhere classified; D47.3 Essential (hemorrhagic) thrombocythemia; R74.8 Abnormal levels of other serum enzymes; K57.30 Diverticulosis of large intestine without perforation or abscess without bleeding
CPT/HCPCS: 36415; 71250-TC; 71260-TC; 74018; 80048-TC; 80076-TC; 83735-TC; 84100-TC; 85025-TC; 86316; 87045-TC; 87081-TC; 87177; 87209; 89055; A4606; A6253; A6402; J3490; J7030; J7042; J7050; Q9967; Z7610

== ENCOUNTER 2023-11-14 08:15 | Inpatient (IN) | payer MEDICAID, OTHER ==
[~2023-11-14] VITALS: Ht 157.5 cm; Wt 44.0 kg
[2023-11-14] VITALS (9 sets, daily range): BP systolic 116–134; BP diastolic 63–74; TEMP 97.7–100; O2SAT 97–98
[~2023-11-14 08:15] MED LIST changes: -CEPH-570 PO; -LOSA25TA13 PO; +LOSA25TA27 PO
[2023-11-14] MEDS ORDERED: ONDANSETRON HCL/PF 4 MG/2 ML VIAL ONE (08:48)
[2023-11-14] MEDS: IV NS 0.9% 1,000 ML BAG IV ONE (09:00)
[2023-11-14] MEDS: ONDANSETRON HCL/PF 4 MG/2 ML VIAL IVP ONE (09:00)
[2023-11-14 09:07] LABS: APPEARANCE,URINE SLIGHTLY CLOUDY (CLEAR); BILIRUBIN,URINE NEGATIVE (NEGATIVE); BLOOD, URINE NEGATIVE Ery/uL (NEGATIVE); COLOR,URINE YELLOW (YELLOW); KETONES,URINE NEGATIVE (NEGATIVE); LEUKOCYTE ESTERASE ,URINE TRACE (NEGATIVE); NITRITE, URINE POSITIVE (NEGATIVE); PROTEIN,URINE TRACE mg/dl (NEGATIVE); UGLUCOSE NEGATIVE (NEGATIVE)
[2023-11-14 09:18] LABS: ADD URINE CULTURE YES; BACTERIA,URINE 1+ /HPF (None Seen); RBC,URINE 0-2 /HPF (0-2)
[2023-11-14 09:19] LABS: MUCUS,URINE Few /LPF (None Seen); URINE AMORPHOUS URATE Few /HPF (None Seen)
[2023-11-14 09:34] LABS: AMPHETAMINE, URINE NEGATIVE (NEGATIVE); BARBITURATE, URINE NEGATIVE (NEGATIVE); BENZODIAZEPINE, URINE NEGATIVE (NEGATIVE); CANNABINOID, URINE NEGATIVE (NEGATIVE); COCCAINE, URINE NEGATIVE (NEGATIVE); OPIATE, URINE NEGATIVE (NEGATIVE); PHENCYCLIDINE SCREEN,URINE NEGATIVE (NEGATIVE)
[2023-11-14 10:11] LABS: CALCIUM, SERUM 9.7 mg/dL (8.5-10.1); CARBON DIOXIDE 28 mmol/L (21-32); CHLORIDE 102 mmol/L (98-107); CREATININE 0.9 mg/dL (0.6-1.3); GLUCOSE 120 mg/dL (74-106); POTASSIUM 5.2 mmol/L (3.5-5.1); SODIUM SERUM 141 mmol/L (136-145); UREA NITROGEN, BLOOD 32 mg/dL (7-18)
[2023-11-14 10:17] LABS: ALANINE AMINOTRANSFERASE 19 U/L (12-78); ALBUMIN 1.5 g/dL (3.4-5.0); ALCOHOL, BLOOD < 3 mg/dL (0-10); ALKALINE PHOSPHATASE 363 U/L (46-116); ASPARTATE AMINOTRANSFERASE 34 U/L (15-37); BILIRUBIN,DIRECT 0.7 mg/dL (0.0-0.2); BILIRUBIN,TOTAL 0.9 mg/dL (0.2-1.0); TOTAL PROTEIN, SERUM 9.5 g/dL (6.4-8.2)
[2023-11-14 10:18] LABS: SALICYLATE 0.9 mg/dL (2.8-20.0)
[2023-11-14 10:20] LABS: BASOPHILS % (AUTO) 0.4 % (0.0-2.0); EOSINOPHILS % (AUTO) 0.3 % (0.0-6.0); LYMPHOCYTES # (AUTO) 0.7 K/uL (0.8-4.8); LYMPHOCYTES % (AUTO) 5.8 % (20.0-44.0); MEAN CORPUSCULAR HEMOGLOBIN 27 PG (26.0-33.0); MEAN CORPUSCULAR HGB CONC 33 g/dl (31.0-36.0); MEAN CORPUSCULAR VOLUME 82 fL (82-100); MONOCYTES # (AUTO) 0.8 K/uL (0.1-1.30); MONOCYTES % (AUTO) 6.7 % (2.0-12.0); NEUTROPHILS # (AUTO) 10.2 K/uL (1.8-8.9); NEUTROPHILS % (AUTO) 86.8 % (43.0-81.0); PLATELET COUNT (AUTO) 809 K/uL (150-450); RED BLOOD CELL COUNT(AUTO) 2.02 MIL/uL (4.0-5.2); RED CELL DISTRIBUTION WIDTH 18.6 % (11.5-15.0); WHITE BLOOD COUNT (AUTO) 11.8 K/uL (4.3-11.0)
[2023-11-14 10:23] LABS: HEMOGLOBIN 5.4 g/dL (11.5-14.8)
[2023-11-14 10:24] LABS: HEMATOCRIT 17 % (33-45)
[2023-11-14 10:51] LABS: THYROID STIMULATING HORMONE 0.569 uIU/mL (0.358-3.74)
[2023-11-14 11:22] LABS: INR 1.24 (0.91-1.10)
[2023-11-14 11:49] LABS: BAND % (MANUAL) 1 % (0.0-5.0); LYMPHOCYTES % (MANUAL) 7 % (16-48); METAMYELOCYTES % 1 % (0-0); MONOCYTES % (MANUAL) 4 % (0-11.0); NEUTROPHILS % (MANUAL) 86 (42-76); PLATELET ESTIMATE INCREASED; REACTIVE LYMPHOCYTES 1 % (0-0)
[2023-11-14 11:50] LABS: ANISOCYTOSIS 1+; STOMATOCYTES 1+
[2023-11-14] MEDS ORDERED: ATOR20TA PO (15:26)
[2023-11-14] MEDS ORDERED: DOCU-141 PO (15:26)
[2023-11-14] MEDS ORDERED: MELA1TAB47 PO (15:26)
[2023-11-14] MEDS ORDERED: ONDANSETRON HCL/PF 4 MG/2 ML VIAL IVP PRN (15:30)
[2023-11-14] MEDS ORDERED: ENOXAPARIN SODIUM 40 MG/0.4 ML DISP.SYRIN SQ SCH (15:30)
[2023-11-14] MEDS ORDERED: Z GUARD REMEDY 4 OZ OINT TP PRN (15:30)
[2023-11-14] MEDS ORDERED: MAGNESIUM HYDROXIDE 30 ML UDC PO PRN (15:30)
[2023-11-14] MEDS: SODIUM POLYSTYRENE SULFONATE 15 G/60 ML BOTTLE PO ONE (15:37)
[2023-11-14] MEDS: IV 1/2NS 1000 ML 1,000 ML IV PRN (15:49)
[2023-11-14 16:23] LABS: IRON, SERUM 14 ug/dl (50-175); TOTAL IRON BINDING CAPACITY 90 ug/dl (250-450)
[2023-11-14 16:24] LABS: FERRITIN 976 ng/mL (8-388)
[2023-11-14] MEDS: SOD FERRIC GLUC 125 MG in IV NS 0.9% 100 ML IV SCH (16:33)
[2023-11-14] MEDS: ACETAMINOPHEN 325 MG TABLET PO PRN (17:47)
[2023-11-14] MEDS: CEFEPIME 2 GM in IV D5W 100 ML IV SCH (17:47)
[2023-11-15] VITALS (10 sets, daily range): BP systolic 118–144; BP diastolic 60–80; TEMP 97–98.5; O2SAT 97–99
[2023-11-15] MEDS: PANTOPRAZOLE 40 MG TABLET.DR PO SCH (07:48)
[2023-11-15 08:31] LABS: D-DIMER 2.83 mg/L(FEU (0.17-0.50); INR 1.38 (0.91-1.10); PARTIAL THROMBOPLASTIN TIME 46.5 SEC (24.3-34.3); PROTHROMBIN TIME 14.3 SECS (9.2-11.1)
[2023-11-15 08:35] LABS: BASOPHILS % (AUTO) 0.2 % (0.0-2.0); EOSINOPHILS % (AUTO) 0.2 % (0.0-6.0); HEMATOCRIT 27 % (33-45); HEMOGLOBIN 8.8 g/dL (11.5-14.8); LYMPHOCYTES # (AUTO) 0.4 K/uL (0.8-4.8); LYMPHOCYTES % (AUTO) 4.1 % (20.0-44.0); MEAN CORPUSCULAR HEMOGLOBIN 27 PG (26.0-33.0); MEAN CORPUSCULAR HGB CONC 33 g/dl (31.0-36.0); MEAN CORPUSCULAR VOLUME 82 fL (82-100); MONOCYTES # (AUTO) 0.6 K/uL (0.1-1.30); MONOCYTES % (AUTO) 5.3 % (2.0-12.0); NEUTROPHILS # (AUTO) 9.6 K/uL (1.8-8.9); NEUTROPHILS % (AUTO) 90.2 % (43.0-81.0); PLATELET COUNT (AUTO) 571 K/uL (150-450); RED BLOOD CELL COUNT(AUTO) 3.29 MIL/uL (4.0-5.2); RED CELL DISTRIBUTION WIDTH 15.7 % (11.5-15.0); RETICULOCYTE COUNT 1.2 % (0.6-2.5); WHITE BLOOD COUNT (AUTO) 10.7 K/uL (4.3-11.0)
[2023-11-15] MEDS ORDERED: ASPIRIN EC 81 MG TABLET.DR PO SCH (09:00)
[2023-11-15 09:17] LABS: CALCIUM, SERUM 7.4 mg/dL (8.5-10.1); CREATININE 0.6 mg/dL (0.6-1.3); MAGNESIUM 2.2 mg/dL (1.8-2.4); PHOSPHORUS 2.7 mg/dL (2.5-4.9); POTASSIUM 3.4 mmol/L (3.5-5.1)
[2023-11-15 09:20] LABS: THYROID STIMULATING HORMONE 0.618 uIU/mL (0.358-3.74)
[2023-11-15] MEDS ORDERED: IOHEXOL-300 100 ML VIAL IV ONE (10:18)
[2023-11-15] MEDS ORDERED: IV NS 0.9% 250 ML IV ONE (10:19)
[2023-11-15 16:09] LABS: FIBRINOGEN ACTIVITY > 900 Mg/dL (213-485)
[2023-11-15 16:20] LABS: HEMOGLOBIN 8.2 g/dL (11.5-14.8)
[2023-11-16 07:00] LABS: BASOPHILS % (AUTO) 0.3 % (0.0-2.0); EOSINOPHILS % (AUTO) 0.3 % (0.0-6.0); HEMATOCRIT 26 % (33-45); HEMOGLOBIN 8.1 g/dL (11.5-14.8); LYMPHOCYTES # (AUTO) 0.4 K/uL (0.8-4.8); LYMPHOCYTES % (AUTO) 3.9 % (20.0-44.0); MEAN CORPUSCULAR HEMOGLOBIN 27 PG (26.0-33.0); MEAN CORPUSCULAR HGB CONC 31 g/dl (31.0-36.0); MEAN CORPUSCULAR VOLUME 85 fL (82-100); MONOCYTES # (AUTO) 0.6 K/uL (0.1-1.30); MONOCYTES % (AUTO) 7.1 % (2.0-12.0); NEUTROPHILS # (AUTO) 8.1 K/uL (1.8-8.9); NEUTROPHILS % (AUTO) 88.4 % (43.0-81.0); PLATELET COUNT (AUTO) 500 K/uL (150-450); RED BLOOD CELL COUNT(AUTO) 3.02 MIL/uL (4.0-5.2); RED CELL DISTRIBUTION WIDTH 16.7 % (11.5-15.0); WHITE BLOOD COUNT (AUTO) 9.1 K/uL (4.3-11.0)
[2023-11-16 07:14] LABS: INR 1.41 (0.91-1.10); PARTIAL THROMBOPLASTIN TIME 51.1 SEC (24.3-34.3); PROTHROMBIN TIME 14.6 SECS (9.2-11.1)
[2023-11-16 07:16] LABS: D-DIMER 5.97 mg/L(FEU (0.17-0.50)
[2023-11-16 07:39] LABS: CREATININE 0.6 mg/dL (0.6-1.3); MAGNESIUM 2.3 mg/dL (1.8-2.4); PHOSPHORUS 2.4 mg/dL (2.5-4.9)
[2023-11-16 08:00] VITALS: BP 112/61; TEMP 98.2; O2SAT 98
[2023-11-16] MEDS: DOCUSATE SODIUM 100 MG CAPSULE PO SCH (08:16)
[2023-11-16] MEDS: ATORVASTATIN 10 MG TABLET PO SCH (08:16)
[2023-11-16] MEDS: POTASSIUM CHLORIDE 20 MEQ TAB.PRT.SR PO SCH (09:53)
[2023-11-16 10:09] LABS: HAPTOGLOBIN 646 mg/dL (37-355); IMMUNOGLOBULIN A, SERUM 284 mg/dL (87-352); IMMUNOGLOBULIN G, SERUM 1629 mg/dL (586-1602); IMMUNOGLOBULIN M, SERUM 56 mg/dL (26-217)
[2023-11-16] MEDS: MINERAL OIL 133 ML (PYXIS) 1 EA ENEMA RC ONE (13:12)
[2023-11-16] MEDS: MEGESTROL ACETATE 40 MG TABLET PO SCH (13:12)
[2023-11-16 14:33] LABS: HEMOGLOBIN 9.3 g/dL (11.5-14.8)
[2023-11-16] MEDS: K PHOS NEUTRAL 250 MG TABLET PO ONE (16:20)
[2023-11-16] MEDS: ENSURE ENLIVE CHOC 237 ML CAN PO SCH (16:30)
[2023-11-16 17:23] LABS: OCCULT BLOOD STOOL NEGATIVE (NEGATIVE)
[2023-11-16 20:00] VITALS: BP 126/70; TEMP 98.4; O2SAT 98
[2023-11-16] MEDS: POLYETHYLENE GLYCOL 3350 17 GM POWD.PACK PO SCH (21:56)
[2023-11-17 00:09] LABS: FOLIC ACID 6.1 ng/mL (>3.0)
[2023-11-17 07:12] LABS: BASOPHILS % (AUTO) 0.2 % (0.0-2.0); EOSINOPHILS % (AUTO) 0.4 % (0.0-6.0); HEMATOCRIT 25 % (33-45); LYMPHOCYTES # (AUTO) 0.4 K/uL (0.8-4.8); LYMPHOCYTES % (AUTO) 4.2 % (20.0-44.0); MEAN CORPUSCULAR HEMOGLOBIN 26 PG (26.0-33.0); MEAN CORPUSCULAR HGB CONC 32 g/dl (31.0-36.0); MEAN CORPUSCULAR VOLUME 83 fL (82-100); MONOCYTES # (AUTO) 0.7 K/uL (0.1-1.30); MONOCYTES % (AUTO) 7.5 % (2.0-12.0); NEUTROPHILS # (AUTO) 7.9 K/uL (1.8-8.9); NEUTROPHILS % (AUTO) 87.7 % (43.0-81.0); PLATELET COUNT (AUTO) 451 K/uL (150-450); RED BLOOD CELL COUNT(AUTO) 3.03 MIL/uL (4.0-5.2); RED CELL DISTRIBUTION WIDTH 16.8 % (11.5-15.0)
[2023-11-17 07:39] LABS: INR 1.4 (0.91-1.10); PARTIAL THROMBOPLASTIN TIME 51.2 SEC (24.3-34.3); PROTHROMBIN TIME 14.5 SECS (9.2-11.1)
[2023-11-17 07:45] LABS: D-DIMER 6.29 mg/L(FEU (0.17-0.50)
[2023-11-17 07:51] LABS: CREATININE 0.6 mg/dL (0.6-1.3); MAGNESIUM 2.1 mg/dL (1.8-2.4); PHOSPHORUS 1.6 mg/dL (2.5-4.9); POTASSIUM 3.5 mmol/L (3.5-5.1)
[2023-11-17 08:00] VITALS: BP 115/64; TEMP 98.5; O2SAT 98
[2023-11-17 12:07] LABS: FREE KAPPA LT CHAINS SERUM 112.1 mg/L (3.3-19.4); FREE LAMBDA LT CHAIN SERUM 69.9 mg/L (5.7-26.3)
[2023-11-17 13:10] LABS: *SPE A/G RATIO 0.3 (0.7-1.7); *SPE ALBUMIN 1.5 g/dL (2.9-4.4); *SPE ALPHA-1-GLOBULIN 0.7 g/dL (0.0-0.4); *SPE ALPHA-2-GLOBULIN 1.4 g/dL (0.4-1.0); *SPE BETA GLOBULIN 1.2 g/dL (0.7-1.3); *SPE GLOBULIN, TOTAL 4.6 g/dL (2.2-3.9); *SPE M-SPIKE Not Observed g/dL (Not Observed); *SPE PROTEIN TOTAL 6.1 g/dL (6.0-8.5); *SPEGAMMA GLOBULIN 1.3 g/dL (0.4-1.8)
[2023-11-17 16:00] VITALS: BP 122/65; TEMP 98.5; O2SAT 96
[2023-11-17] MEDS: K PHOS NEUTRAL 250 MG TABLET PO ONE (16:25)
[2023-11-17 16:49] LABS: HEMOGLOBIN 8.4 g/dL (11.5-14.8)
[2023-11-17 20:00] VITALS: BP 118/67; TEMP 98.1; O2SAT 99
[2023-11-18 08:00] VITALS: BP 121/71; TEMP 97.3; O2SAT 98
[2023-11-18 14:50] LABS: INR 1.52 (0.91-1.10); PROTHROMBIN TIME 15.7 SECS (9.2-11.1)
[2023-11-18 16:00] VITALS: BP 116/64; TEMP 98.2; O2SAT 97
[2023-11-18 20:00] VITALS: BP 130/69; TEMP 98.7; O2SAT 98
[2023-11-19 08:00] VITALS: BP 122/64; TEMP 98.2; O2SAT 99
[2023-11-19 08:08] LABS: INR 1.49 (0.91-1.10); PARTIAL THROMBOPLASTIN TIME 57.5 SEC (24.3-34.3); PROTHROMBIN TIME 15.4 SECS (9.2-11.1)
[2023-11-19 13:30] LABS: BASOPHILS % (AUTO) 0.3 % (0.0-2.0); EOSINOPHILS % (AUTO) 0.3 % (0.0-6.0); HEMATOCRIT 24 % (33-45); HEMOGLOBIN 7.7 g/dL (11.5-14.8); LYMPHOCYTES # (AUTO) 0.4 K/uL (0.8-4.8); LYMPHOCYTES % (AUTO) 4.2 % (20.0-44.0); MEAN CORPUSCULAR HEMOGLOBIN 27 PG (26.0-33.0); MEAN CORPUSCULAR HGB CONC 32 g/dl (31.0-36.0); MEAN CORPUSCULAR VOLUME 84 fL (82-100); MONOCYTES # (AUTO) 0.7 K/uL (0.1-1.30); MONOCYTES % (AUTO) 7.2 % (2.0-12.0); NEUTROPHILS # (AUTO) 8.1 K/uL (1.8-8.9); PLATELET COUNT (AUTO) 447 K/uL (150-450); RED BLOOD CELL COUNT(AUTO) 2.88 MIL/uL (4.0-5.2); RED CELL DISTRIBUTION WIDTH 16.8 % (11.5-15.0); WHITE BLOOD COUNT (AUTO) 9.2 K/uL (4.3-11.0)
== END 2023-11-19 16:08 | DRG 720 ==
LOC: ER 08:21 → MED 13:44 → TELE 18:27 → MED 11-15 13:43
PROVIDERS: ADMIT Nurse Practitioner Family; ATTEND Nurse Practitioner Acute Care
PROC: 30233N1 Transfusion of Nonautologous Red Blood Cells into Peripheral Vein, Percutaneous Approach (ICD-10-PCS; principal; 2023-11-14)
PROC: 05HB33Z Insertion of Infusion Device into Right Basilic Vein, Percutaneous Approach (ICD-10-PCS; 2023-11-14)
PROC: B54MZZA Ultrasonography of Right Upper Extremity Veins, Guidance (ICD-10-PCS; 2023-11-14)
PROC: 0FD13ZX Extraction of Right Lobe Liver, Percutaneous Approach, Diagnostic (ICD-10-PCS; 2023-11-19)
DX: A41.9 Sepsis, unspecified organism (principal); G93.41 Metabolic encephalopathy; E43 Unspecified severe protein-calorie malnutrition; R18.8 Other ascites; C78.6 Secondary malignant neoplasm of retroperitoneum and peritoneum; R62.7 Adult failure to thrive; C78.7 Secondary malignant neoplasm of liver and intrahepatic bile duct; E88.09 Other disorders of plasma-protein metabolism, not elsewhere classified; K92.2 Gastrointestinal hemorrhage, unspecified; N39.0 Urinary tract infection, site not specified; Z86.73 Personal history of transient ischemic attack (TIA), and cerebral infarction without residual deficits; E87.5 Hyperkalemia; D64.9 Anemia, unspecified; D75.839 Thrombocytosis, unspecified; I10 Essential (primary) hypertension; E80.6 Other disorders of bilirubin metabolism; Z85.42 Personal history of malignant neoplasm of other parts of uterus; Z87.891 Personal history of nicotine dependence; Z90.49 Acquired absence of other specified parts of digestive tract; Z98.2 Presence of cerebrospinal fluid drainage device; D3A.8 Other benign neuroendocrine tumors; Z90.710 Acquired absence of both cervix and uterus; B96.1 Klebsiella pneumoniae [K. pneumoniae] as the cause of diseases classified elsewhere; Z92.21 Personal history of antineoplastic chemotherapy; Z85.89 Personal history of malignant neoplasm of other organs and systems; Z68.1 Body mass index [BMI] 19.9 or less, adult
CPT/HCPCS: 36415; 70450-TC; 71045-TC; 71270-TC; 74178; 77012-TC; 80048-TC; 80061-TC; 80076-TC; 81001; 82105; 82272-TC; 82378; 82607-TC; 82728-TC; 82784; 82962-TC; 83010; 83540-TC; 83615-TC; 83735-TC; 84100-TC; 84155; 84165; 84443-TC; 84484-TC; 84550-TC; 85025-TC; 85027-TC; 85045-TC; 85385-TC; 85396; 85610-TC; 85730-TC; 86304; 86334; 86850-TC; 87040-TC; 87086-TC; 97110-TC; 97116-TC; 97530-TC; 97535-TC; A4223; G0378; G0480; J0692; J2405; J2916; J3490; J7030; J7040; J7050; J7060; P9016; Q9967